=== PATIENT | female | born 1990 | race Caucasian/White ===

== ENCOUNTER → 2020-09-28 | Outpatient (CLI) | payer SELFPAY | PROVIDERS: Referring Provider Internal Medicine; Visit Provider Internal Medicine | DX: Z23 Encounter for immunization (principal) | CPT/HCPCS: 90471; 90686 ==

== ENCOUNTER → 2020-12-03 07:45 | Outpatient (CLI) | payer OTHER, SELFPAY ==
[2020-12-03] MEDS: COVID-19 VACC(MODERNA-1)/PF 100 MCG/0.5 ML VIAL IM (07:52)
== END ==
PROVIDERS: Visit Provider Internal Medicine
DX: Z23 Encounter for immunization (principal)
CPT/HCPCS: 0011A; 91301

== ENCOUNTER → 2020-12-30 07:28 | Outpatient (CLI) | payer OTHER, SELFPAY ==
[2020-12-30] MEDS: COVID-19 VACC #2, MRNA(MOD) 100 MCG/0.5 ML VIAL IM (07:35)
== END ==
PROVIDERS: Visit Provider Internal Medicine
DX: Z23 Encounter for immunization (principal)
CPT/HCPCS: 0012A; 91301

== ENCOUNTER → 2021-09-08 | Outpatient (CLI) | payer OTHER, SELFPAY | PROVIDERS: Referring Provider Internal Medicine; Visit Provider Internal Medicine | DX: Z23 Encounter for immunization (principal) | CPT/HCPCS: 90471; 90686 ==

== ENCOUNTER 2022-07-08 07:52 | Emergency (ER) | payer OTHER, SELFPAY ==
[2022-07-08 08:02] VITALS: BP 129/76; PULSE 86; RESP 18; TEMP 36.6; O2SAT 99
--- NOTE | 2022-07-08 08:11 | ED_ITS ---
HPI - General Adult General Chief complaint: Blood/Body fluid exposure Stated complaint: body fluid exposer Time Seen by Provider: 07/08/22 08:00 History of Present Illness HPI narrative: Patient is a healthy 32-year-old female who presents with body fluid exposure. 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 Vaccines are up to date. Source agreed to testing and is currently being tested. She irrigated her eye afterwards Related Data Home Medications Medication Instructions Recorded Confirmed docusate sodium 100 mg capsule 200 mg PO DAILY 03/17/22 03/17/22 (Colace) ondansetron 4 mg disintegrating 4 mg PO Q8H 03/17/22 03/17/22 tablet Previous Rx's Medication Instructions Recorded modafinil 100 mg tablet 100 mg PO DAILY #30 tabs 04/18/22 sumatriptan succinate 50 mg tablet 100 mg PO .COMPLEX #10 tabs 05/16/22 lamotrigine 200 mg tablet 200 mg PO DAILY #90 tabs 05/31/22 Allergies Allergy/AdvReac Type Severity Reaction Status Date / Time Sulfa (Sulfonamide AdvReac Mild Hives Verified 07/08/22 08:01 Antibiotics) Review of Systems Review of Systems Narrative: GENERAL: Denies chills,fever HEENT: Denies throat pain RESPIRATORY: Denies dyspnea, cough, wheezing CARDIOVASCULAR: Denies chest pain, palpitations GASTROINTESTINAL: Denies nausea, vomiting MUSCULOSKELETAL: Denies extremity pain, injury SKIN: No rash, no laceration, no pruritus NEUROLOGIC: Denies weakness, dizziness, headache, numbness 8 point review of systems is negative except for those stated above and HPI Patient History Medical History Acne (~2001) Chronic constipation Depression (~2003) Hyperlipidemia Migraine, chronic, without aura (~2008) Surgical History Anesthesia History of facial surgery (~1995) History of tympanoplasty of right ear (~2013) Hx of breast implants, bilateral (~2019) Family History Father Hyperlipidemia Mental health problem Mother Breast cancer Hyperlipidemia Grandfather Hyperlipidemia Grandmother Cancer Grandfather History of heart disease Grandmother Mental health problem Social History Smoking Status: Never smoker Smoking Status: Never smoker Exam Initial Vital Signs Initial Vital Signs: Vital Signs Temperature 98 F 07/08/22 08:02 Pulse Rate 86 07/08/22 08:02 Respiratory Rate 18 07/08/22 08:02 Blood Pressure 129/76 07/08/22 08:02 Pulse Oximetry 99 07/08/22 08:02 Oxygen Delivery Method 07/08/22 08:02 GENERAL: Healthy well-appearing 32-year-old female CARDIOVASCULAR: peripheral pulses in tact, cap refill <2 sec RESPIRATORY: No respiratory distress, speaks in full sentences without diffic ulty EXTREMITIES: Normal range of motion, no clubbing or edema. Neurovascularly intact NEUROLOGICAL: Cranial nerves II through XII grossly intact. Normal gait and speech. SKIN: Warm, dry, no petechiae, no rashes or lesions. Course Vital Signs Vital signs: Vital Signs - 8 hr 07/08/22 08:02 Temperature 98 F Pulse Rate 86 Respiratory Rate 18 Blood Pressure 129/76 Pulse Oximetry 99 Oxygen Delivery Method Room Air Medical Decision Making Lab Data Labs: Lab Results 07/08/22 07/08/22 Range/Units 08:19 08:19 ALT 13 (<35) IU/L Hep Bs Antigen Negative (NEGATIVE) s/c Hepatitis C Antibody Negative (NEGATIVE) s/c HIV 1&2 Ab/P24 Ag 4thGn Negative (NEGATIVE) MDM Narrative Medical decision making narrative: source being tested. paper work filed out. Discharge Plan Departure Patient Disposition: Home Clinical Impression: Employee exposure to body fluids Activity Restrictions/Additional Instructions: *You have been diagnosed with body fluid exposure *Continue to take medications as directed *Follow up with your primary care provider in 2-3 days or call [phone] *Return to ER if you should have any new, worsening or concerning symptoms Prescriptions: No Action modafinil 100 mg tablet 100 mg PO DAILY Qty: 30 0RF sumatriptan succinate 50 mg tablet 100 mg PO .COMPLEX Qty: 10 3RF Rx Instructions: take 1 tab at onset of headache; if no relief may repeat 1 tab after at least 2 hrs; max = 200mgs/24 hr PO lamotrigine 200 mg tablet 200 mg PO DAILY Qty: 90 3RF docusate sodium [Colace] 100 mg capsule 200 mg PO DAILY ondansetron 4 mg tablet,disintegrating 4 mg PO Q8H Referrals: Jarek Casillas MD [Primary Care Provider] - Visit Report Forms: Patient Portal/API
[2022-07-08 08:55] LABS: Alanine Aminotransferase 13 IU/L (<35)
[2022-07-08 09:28] LABS: Hepatitis B Surface Antigen NEGATIVE s/c (NEGATIVE)
[2022-07-08 09:45] LABS: HIV 1 & 2 Ab/Ag 4th Gen Combo NEGATIVE (NEGATIVE); Hep C Virus Ab w/Reflex Quant NEGATIVE s/c (NEGATIVE)
[2022-07-10 02:35] LABS: Hepatitis B Surf Ab Qualitativ Reactive (.)
== END 2022-07-08 08:33 | disposition home or self-care (01) ==
PROVIDERS: Emergency Provider Emergency Medicine; PCP Family Medicine
DX: Z77.21 Contact with and (suspected) exposure to potentially hazardous body fluids (principal); Y99.0 Civilian activity done for income or pay
CPT/HCPCS: 36415; 99281; 99283

== ENCOUNTER → 2022-09-14 16:40 | Outpatient (CLI) | payer OTHER, SELFPAY | PROVIDERS: PCP Family Medicine; Referring Provider Internal Medicine; Visit Provider Internal Medicine | DX: Z23 Encounter for immunization (principal) | CPT/HCPCS: 90471; 90686 ==

== ENCOUNTER 2023-01-11 00:58 | Emergency (ER) | payer OTHER, SELFPAY ==
[2023-01-11 01:05] VITALS: BP 140/88; PULSE 110; RESP 18; TEMP 37; O2SAT 98
[2023-01-11] MEDS: SUMAtriptan 25 MG TABLET PO (01:11)
--- NOTE | 2023-01-11 01:18 | ED_ITS ---
HPI - Headache General Chief Complaint: Headache Stated Complaint: RT EYE PAIN Time Seen by Provider: 01/11/23 01:00 Mode of arrival: Ambulatory History of Present Illness HPI Narrative: 32F nonsmoker with extensive history ocular migraine presents with a chief co mplaint of gradually worsening right-sided headache that is made worse with bright light and loud noise. She states that presents a very similar fashion to prior headaches. She denies recent trauma or injury. She is had no blurred vision or trouble with speech. She denies fever or chills and has no neck pain. She states the pain is gradually worsening and denies any radiation of the pain. She states typically her symptoms are helped by sumatriptan oral but she does not currently have access to her prescriptions. Related Data Home Medications Medication Instructions Recorded Confirmed docusate sodium 100 mg capsule 200 mg PO DAILY 03/17/22 03/17/22 (Colace) Previous Rx's Medication Instructions Recorded lamotrigine 200 mg tablet 200 mg PO DAILY #90 tabs 05/31/22 sumatriptan succinate 50 mg tablet 100 mg PO .COMPLEX #10 tabs 07/17/22 ondansetron 4 mg disintegrating 4 mg PO Q8H #30 tabs 09/29/22 tablet modafinil 100 mg tablet 100 mg PO DAILY #30 tabs 12/08/22 propranolol 20 mg tablet 20 mg PO BID #90 tabs 01/10/23 Allergies Allergy/AdvReac Type Severity Reaction Status Date / Time Sulfa (Sulfonamide AdvReac Mild Hives Verified 07/08/22 08:01 Antibiotics) Review of Systems Review of Systems Narrative: GENERAL: Denies chills, fatigue, malaise, fever, sweats. HEENT: Denies sinus pain, ear pain, sore throat, difficulty swallowing, dizziness. RESPIRATORY: Denies dyspnea, cough, wheezing, hemoptysis, sputum. CARDIOVASCULAR: Denies chest pain, palpitations, orthopnea, edema, GASTROINTESTINAL: Denies nausea, vomiting, abdominal pain, diarrhea, constipation, melena. : Denies dysuria, frequency, incontinence, hematuria, urinary retention. MUSCULOSKELETAL: denies weakness, joint pain, or bony pain SKIN: Denies rash, skin lesions, or other NEUROLOGIC: See HPI PSYCHIATRIC: No concerning psychosocial issues. 12 point review of systems is negative except for those stated above Patient History Medical History Acne (~2001) Chronic constipation Depression (~2003) Hyperlipidemia Migraine, chronic, without aura (~2008) Surgical History Anesthesia History of facial surgery (~1995) History of tympanoplasty of right ear (~2013) Hx of breast implants, bilateral (~2019) Family History Father Hyperlipidemia Mental health problem Mother Breast cancer Hyperlipidemia Grandfather Hyperlipidemia Grandmother Cancer Grandfather History of heart disease Grandmother Mental health problem Social History Smoking Status: Never smoker Smoking Status: Never smoker Substance Use Type: does not use Exam Narrative Exam Narrative: GEN: AOx3 and in mild distress, obviously uncomfortable, rubbing the right side of her head and sitting in a dark room EYES: Pupils are equal, round, and reactive to light and accommodation. Extraoccular muscles are intact bilaterally. There is no subconjunctival hemorrhage or exudate. NECK: No meningeal signs CHEST: Lungs are clear to auscultation bilaterally and free of wheezes, rales, or rhonchi. Heart rate is regular rhythm, there are no murmurs, clicks, rubs, or gallops. There is no chest wall tenderness. ABD: Abdomen is soft and nontender. There is no guarding or rebound. Bowel sounds are normal in all 4 quadrants. There is no mass or organomegaly. EXT: Full painless ROM of all extremities with no loss of sensation or strength. SKIN: Warm, pink, and dry. No erythema or rash Initial Vital Signs Initial Vital Signs: Vital Signs Temperature 98.6 F 01/11/23 01:05 Pulse Rate 110 H 01/11/23 01:05 Respiratory Rate 18 01/11/23 01:05 Blood Pressure 140/88 01/11/23 01:05 Pulse Oximetry 98 01/11/23 01:05 Oxygen Delivery Method 01/11/23 01:05 Course Course Course Narrative: Patient improved with above-stated therapies Orders Ordered: Discontinued Medications Sumatriptan Succinate (Sumatriptan 25 Mg Tablet) 25 mg PO NOW ONE Stop: 01/11/23 01:01 Last Admin: 01/11/23 01:11 Dose: 25 mg Documented By: SAMY Vital Signs Vital signs: Vital Signs - 8 hr 01/11/23 01:05 Temperature 98.6 F Pulse Rate 110 H Respiratory Rate 18 Blood Pressure 140/88 Pulse Oximetry 98 Oxygen Delivery Method Room Air MDM - Headache MDM Narrative Medical decision making narrative: [32F with right sided gradual onset SIMON] Multiple etiologies for patient's symptoms considered including, but not limited to: [Migraine versus other] Prior Charts reviewed: Prior charts reviewed Patient's symptoms improved over duration of stay with above-stated therapies. Findings and discharge diagnosis discussed with patient/family followed by verbalization of understanding Return precautions discussed with patient/family whom verbalize understanding of diagnosis and plan Discharge Plan Departure Patient Disposition: Home Clinical Impression: Migraine Instructions: DI for Migraine Activity Restrictions/Additional Instructions: *You have been diagnosed with [ migraine headache] *What to do: *Please continue to take your regular medications as directed. *Please follow up with your primary care provider in 2-3 days, call for an appointment. Let them know you were seen in the Emergency Department and that we ask that you be seen in follow up. We will electronically transmit a record of today's note if your PCP is in our system *Return to Emergency Department if you should have any new, worsening or concerning symptoms, such as [fever greater than 101 F, shaking chills, worsening pain, persistent vomiting or other bothersome symptoms] Prescriptions: No Action lamotrigine 200 mg tablet 200 mg PO DAILY Qty: 90 3RF sumatriptan succinate 50 mg tablet 100 mg PO .COMPLEX Qty: 10 3RF Rx Instructions: take 1 tab at onset of headache; if no relief may repeat 1 tab after at least 2 hrs; max = 200mgs/24 hr PO ondansetron 4 mg tablet,disintegrating 4 mg PO Q8H Qty: 30 11RF modafinil 100 mg tablet 100 mg PO DAILY Qty: 30 0RF propranolol 20 mg tablet 20 mg PO BID Qty: 90 2RF docusate sodium [Colace] 100 mg capsule 200 mg PO DAILY Referrals: Jarek Casillas MD [Primary Care Provider] - Stand Alone Forms: Patient Portal/API
== END 2023-01-11 01:19 | disposition home or self-care (01) ==
PROVIDERS: Emergency Provider Emergency Medicine; PCP Family Medicine
DX: G43.909 Migraine, unspecified, not intractable, without status migrainosus (principal)
CPT/HCPCS: 99283

== ENCOUNTER → 2023-10-29 14:11 | Outpatient (CLI) | payer OTHER, SELFPAY | PROVIDERS: PCP Family Medicine; Referring Provider Family Medicine; Visit Provider Family Medicine | DX: Z23 Encounter for immunization (principal) | CPT/HCPCS: 90471; 90686 ==

== ENCOUNTER → 2023-12-15 08:27 | Outpatient (CLI) | payer OTHER, SELFPAY ==
[2023-12-15 09:11] LABS: Add Manual Diff / Slide Review NO; Basophils Absolute Auto 0 /uL (0-100); Basophils Percent Auto 0.5 % (0-2); Eosinophils Absolute Auto 400 /uL (0-450); Eosinophils Percent Auto 6.7 % (2-4); Hematocrit 35.6 % (36-46); Hemoglobin 11.6 g/dL (12.0-16.0); Lymphocytes Absolute Auto 1900 /uL (1100-4500); Lymphocytes Percent Auto 35.2 % (25-40); Mean Corpuscular HGB Conc 32.6 % (30-36); Mean Corpuscular Hemoglobin 25.6 PG (26-34); Mean Corpuscular Volume 78.5 fL (80-100); Monocytes Absolute Auto 400 /uL (0-900); Monocytes Percent Auto 7.4 % (3-14); Neutrophils Absolute Auto 2800 /uL (1500-7000); Neutrophils Percent Auto 50.2 % (50-75); Platelet Count 253 X10^3/uL (150-400); Red Blood Cell Count 4.54 X10^6/uL (4.0-5.2); Red Cell Distribution Width 16.1 % (11.6-14.8); White Blood Cell Count 5.5 X10^3/uL (4.5-11.0)
[2023-12-15 09:47] LABS: HEMOLYSIS < 15 (0-50)
[2023-12-15 09:48] LABS: Alanine Aminotransferase 14 IU/L (<35); Albumin 4.7 g/dL (3.5-5.0); Albumin Globulin Ratio 1.4 (1.0-2.8); Alkaline Phosphatase 70 U/L (38-126); Aspartate Aminotransferase 23 IU/L (14-36); BUN Creatinine Ratio 11.1 (6-22); Bilirubin Total 0.6 mg/dL (0.2-1.3); Blood Urea Nitrogen 7 mg/dL (7-17); Calcium 9.9 mg/dL (8.4-10.2); Carbon Dioxide 29 mmol/L (22-32); Chloride 99 mmol/L (98-107); Cholesterol 194 mg/dL (140-199); Estimated Glomerular Filt Rate > 60 mL/min (>60); Globulin 3.3 g/dL (1.7-4.1); Glucose 87 mg/dL (70-100); HDL Cholesterol 55 mg/dL (40-60); LDL Cholesterol Calculated 114 mg/dL (<100); Sodium 139 mmol/L (137-145); Triglycerides 123 mg/dL (35-150)
[2023-12-15 09:55] LABS: Potassium 3.7 mmol/L (3.4-5.1)
[2023-12-15 10:20] LABS: Free T4, Direct Thyroxine 0.91 ng/dL (0.78-2.19)
[2023-12-15 10:34] LABS: Thyroid Stimulating Hormone 2.21 uIU/mL (0.47-4.68)
[2023-12-16 08:08] LABS: Apolipoprotein B 87 mg/dL (<90)
== END ==
LOC: LAB 08:28
PROVIDERS: PCP Family Medicine; Referring Provider Family Medicine; Visit Provider Family Medicine
DX: Z00.00 Encounter for general adult medical examination without abnormal findings (principal)
CPT/HCPCS: 36415; 80053; 80061; 82172; 83695; 84439; 84443; 85025

== ENCOUNTER → 2024-10-07 14:09 | Outpatient (CLI) | payer OTHER, SELFPAY | PROVIDERS: PCP Family Medicine; Referring Provider Internal Medicine; Visit Provider Internal Medicine | DX: Z23 Encounter for immunization (principal) | CPT/HCPCS: 90471; 90656 ==

== ENCOUNTER → 2025-02-16 23:47 | Outpatient (ROUT) | payer OTHER, SELFPAY ==
[2025-02-17 00:03] LABS: Add Manual Diff / Slide Review NO; Basophils Absolute Auto 100 /uL (0-100); Basophils Percent Auto 0.8 % (0-2); Eosinophils Absolute Auto 400 /uL (0-450); Eosinophils Percent Auto 6.5 % (2-4); Hematocrit 34.5 % (36-46); Hemoglobin 10.9 g/dL (12.0-16.0); Lymphocytes Absolute Auto 2200 /uL (1100-4500); Lymphocytes Percent Auto 34.3 % (25-40); Mean Corpuscular HGB Conc 31.8 % (30-36); Mean Corpuscular Hemoglobin 23.6 PG (26-34); Mean Corpuscular Volume 74.2 fL (80-100); Monocytes Absolute Auto 400 /uL (0-900); Monocytes Percent Auto 6.1 % (3-14); Neutrophils Absolute Auto 3300 /uL (1500-7000); Neutrophils Percent Auto 52.3 % (50-75); Platelet Count 289 X10^3/uL (150-400); Red Blood Cell Count 4.64 X10^6/uL (4.0-5.2); Red Cell Distribution Width 16.6 % (11.6-14.8); White Blood Cell Count 6.3 X10^3/uL (4.5-11.0)
[2025-02-17 00:16] LABS: Hemoglobin A1C% w Est Avg Glu 4.5 % (4.0-6.0)
[2025-02-17 00:58] LABS: Alanine Aminotransferase 23 IU/L (<35); Albumin 5.2 g/dL (3.5-5.0); Albumin Globulin Ratio 1.8 (1.0-2.8); Alkaline Phosphatase 67 U/L (38-126); Aspartate Aminotransferase 26 IU/L (14-36); Bilirubin Total 0.7 mg/dL (0.2-1.3); Blood Urea Nitrogen 8 mg/dL (7-17); Calcium 10.4 mg/dL (8.4-10.2); Carbon Dioxide 29 mmol/L (22-32); Chloride 101 mmol/L (98-107); Cholesterol 242 mg/dL (140-199); Estimated Glomerular Filt Rate > 60 mL/min (>60); Globulin 2.9 g/dL (1.7-4.1); Glucose 96 mg/dL (70-100); HDL Cholesterol 85 mg/dL (40-60); HEMOLYSIS < 15 (0-50); LDL Cholesterol Calculated 144 mg/dL (<100); Potassium 4.2 mmol/L (3.4-5.1); Sodium 138 mmol/L (137-145); Total Protein 8.1 g/dL (6.3-8.2); Triglycerides 63 mg/dL (35-150)
[2025-02-17 01:28] LABS: Thyroid Stimulating Hormone 1.77 uIU/mL (0.47-4.68)
== END ==
PROVIDERS: PCP Family Medicine; Visit Provider Family Medicine
DX: E78.2 Mixed hyperlipidemia (principal); F32.9 Major depressive disorder, single episode, unspecified; G43.709 Chronic migraine without aura, not intractable, without status migrainosus; Z13.1 Encounter for screening for diabetes mellitus
CPT/HCPCS: 36415; 80053; 80061; 83036; 84443; 85025

== ENCOUNTER → 2025-06-30 02:38 | Outpatient (ROUT) | payer OTHER, SELFPAY ==
[2025-07-02 05:11] LABS: Calcium 9.7 mg/dL (8.7-10.2); Parathyroid Hormone, Intact 45 pg/mL (15-65)
== END ==
PROVIDERS: PCP Family Medicine; Visit Provider Family Medicine
DX: Z00.00 Encounter for general adult medical examination without abnormal findings (principal); E78.5 Hyperlipidemia, unspecified; G43.709 Chronic migraine without aura, not intractable, without status migrainosus; F32.A Depression, unspecified; D64.9 Anemia, unspecified
CPT/HCPCS: 82310; 83970